=== PATIENT | female | born 1970 | race Caucasian/White ===

== ENCOUNTER 2024-12-26 13:33 | Outpatient (CLI) | payer OTHER | END 2024-12-26 13:34 | disposition home or self-care (01) | LOC: MADLAB 13:33 | PROVIDERS: ATTEND Internal Medicine Endocrinology, Diabetes & Metabolism | DX: C73 Malignant neoplasm of thyroid gland (principal) | CPT/HCPCS: 36415; 84439; 84443; 86800 ==